=== PATIENT | male | born 1960 | race Caucasian/White ===

== ENCOUNTER 2020-10-11 01:19 | Outpatient (CLI) | payer OTHER, SELFPAY ==
[2020-10-12 00:20] LABS: SARS-CoV-2 RNA PCR Negative
== END 2020-10-11 01:20 | disposition home or self-care (01) ==
LOC: ANHCOVIDDT 01:19
PROVIDERS: PCP Family Medicine; Visit Provider Internal Medicine Gastroenterology
DX: Z01.812 Encounter for preprocedural laboratory examination (principal); Z20.822 Contact with and (suspected) exposure to COVID-19
CPT/HCPCS: C9803; U0003; U0005

== ENCOUNTER 2020-10-14 01:01 | Day surgery (SDC) | payer OTHER, SELFPAY ==
[2020-09-29 14:15] VITALS: BMI 30.7
[2020-10-14 06:16] VITALS: BP 127/84; PULSE 82; RESP 17; TEMP 36.4; O2SAT 98; BMI 28.3
[2020-10-14] MEDS: LACTATED RINGERS 1,000 ML 150 ML IV CONT (06:27)
--- NOTE | 2020-10-14 07:12 | WPDANESEPPF ---
Anes - Initial Pre Proc Eval Procedure: Operation Date: 10/14/20 07:30 Proposed Procedures p Screening Colonoscopy - Edgar Last MD Date/Time: 10/14/20 07:12 Surgeon: Edgar Last MD Pre Op Diagnosis: Neoplasm Screening Patient Data Age: 59 Gender: M Height: 1.68 m Weight: 79.5 kg Last Vital Signs Temp 36.4 C L 10/14/20 06:16 Pulse 82 10/14/20 06:16 Resp 17 10/14/20 06:16 BP 127/84 10/14/20 06:16 Pulse Ox 98 10/14/20 06:16 Allergies Allergy/AdvReac Type Severity Reaction Status Date / Time No Known Allergies Allergy Unknown Verified 10/14/20 06:14 Home Medications Medication Instructions Recorded Confirmed Type No Home Medications 10/14/20 10/14/20 History Patient hx anesthesia problems: none Family hx anesthesia problems: none PMFSH Past Medical History Medical History (Updated 09/15/20 @ 09:09 by Spencer Diana MD) BMI 30.0-30.9,adult Decreased libido Elevated PSA Numbness of right hand Screen for colon cancer Screening for lipid disorders Screening for prostate cancer Tobacco abuse Family History Family History Father Hypertension Mother No problems noted. Social History Social History Smoking packs per day: 1.5 Smoking cigarettes per day: 30.0 Years smoked: 8 Smoking pack-years: 12.00 Smoking status: Former smoker Tobacco type: cigarettes Smoking end date: 09/19/86 Alcohol intake: current Drinks per week: 2 Alcohol use details: beer Living arrangements: with family Gender identity (if verbalized by the patient): Male Spiritual care concerns: No Anes - Eval Final PreProcedure Day of Procedure 10/14/20 07:12 Patient weight: overweight Heart: regular rate and rhythm Lungs: clear to auscultation and normal air movement Airway: Mallampati scale class II Neurological: alert and oriented Last oral intake: >/= 8 hours ASA classification: II Emergent: no Anesthetic plan: proceed Anesthesia type and monitoring: general GIVS Informed Consent: The patient's anesthetic plan and its attendant risks and benefits were discussed with the patient/family/POA. Questions were solicited and answers provided to the satisfaction of the patient/family/POA.
--- NOTE | 2020-10-14 07:36 | PM.HPGS ---
History of Present Illness History of Present Illness Consent: Risks, benefits, and alternatives have been discussed and questions answered. Patient agrees to proceed with procedure. Chief complaint: Neoplasm Screening Narrative: Tato Jain is a 59 year old male here for first screening colonoscopy Review of Systems Constitutional: Constitutional: Denies headache(s) and Denies weakness Eyes: Eyes: Denies blurry vision ENT: Reports Normal hearing present, Denies headache(s) and Denies neck pain Cardiovascular: Cardiovascular: Denies chest pain and Denies dyspnea Respiratory: Respiratory: Denies dyspnea Gastrointestinal: Gastrointestinal: Reports no additional gastrointestinal complaints Genitourinary: Genitourinary: Denies dysuria Musculoskeletal: Musculoskeletal: Denies neck pain Integumentary/Breasts: Skin/Breast: Denies dry skin Neurologic: Reports Normal hearing present, Denies headache(s) and Denies weakness Psychiatric: Psychiatric: Denies anxiety Endocrine: Endocrine: Denies change in body appearance Hematologic/Lymphatic: Hematologic/Lymphatic: Denies easy bleeding Allergic/Immunologic: Allergic/Immunologic: Denies urticaria [facility] Past Medical History Medical History (Updated 09/15/20 @ 09:09 by Spencer Diana MD) BMI 30.0-30.9,adult Decreased libido Elevated PSA Numbness of right hand Screen for colon cancer Screening for lipid disorders Screening for prostate cancer Tobacco abuse Family History Family History Father Hypertension Mother No problems noted. Social History Social History Smoking packs per day: 1.5 Smoking cigarettes per day: 30.0 Years smoked: 8 Smoking pack-years: 12.00 Smoking status: Former smoker Tobacco type: cigarettes Smoking end date: 09/19/86 Alcohol intake: current Drinks per week: 2 Alcohol use details: beer Living arrangements: with family Gender identity (if verbalized by the patient): Male Spiritual care concerns: No Meds Home Medications and Allergies Home Medications Medication Instructions Recorded Confirmed Type No Home Medications 10/14/20 10/14/20 History Allergies Allergy/AdvReac Type Severity Reaction Status Date / Time No Known Allergies Allergy Unknown Verified 10/14/20 06:14 Vital Signs Vital Signs - 24 hr 10/14/20 06:16 Temperature 97.5 F L Pulse Rate 82 Respiratory Rate 17 Blood Pressure 127/84 Pulse Oximetry 98 Exam Const: General: comfortable and no acute distress HENMT: General nose exam: Normal nares present Eyes: General: appearance normal, both eyes and all related structures Neck: Neck: no JVD Resp: Auscultation: clear to auscultation bilaterally Cardio: Rate: regular rate Rhythm: regular rhythm GI: Inspection: non-distended GI Palp: Yes Soft to palpation Skin: General skin exam: normal color Neuro: General: gait normal Speech: normal speech Extrem: General: normal to inspection Psych: Mental Status: mental status grossly normal Assessment and Plan Assessment and plan (1) Screen for colon cancer: Code(s): Z12.11 - Encounter for screening for malignant neoplasm of colon Status: Acute Assessment and Plan: will proceed with colonoscopy
[2020-10-14 08:01] VITALS: BP 84/55; PULSE 86; RESP 16; O2SAT 97
[2020-10-14 08:11] VITALS: BP 90/60; PULSE 79; RESP 19; O2SAT 98
[2020-10-14 08:21] VITALS: BP 97/70; PULSE 71; RESP 19; O2SAT 99
== END 2020-10-14 08:37 | disposition home or self-care (01) ==
PROVIDERS: PCP Family Medicine; Visit Provider Internal Medicine Gastroenterology
PROC: 0DJD8ZZ Inspection of Lower Intestinal Tract, Via Natural or Artificial Opening Endoscopic (ICD-10-PCS; CPT 45378; principal; 2020-10-14 07:30)
DX: Z12.11 Encounter for screening for malignant neoplasm of colon (principal); D12.3 Benign neoplasm of transverse colon; K64.8 Other hemorrhoids; Z87.891 Personal history of nicotine dependence
CPT/HCPCS: 45385; 45381; 88305; C9803; J2704; J7120; U0003; U0005

== ENCOUNTER 2022-02-17 12:21 | Outpatient (CLI) | payer OTHER, SELFPAY ==
--- NOTE | ~2022-02-17 | XR_ITS ---
EXAMINATION: XR lumbar spine 2-3V DATE: 02/17/2022 12:45 INDICATION: Low back pain TECHNIQUE: Anteroposterior and lateral views of the lumbar spine, and cone-down lateral view of the l umbosacral junction were obtained. COMPARISON: 11/04/2017 FINDINGS: There are 3 mm of unchanged retrolisthesis of L4 on L5 and 4 mm of unchanged anterolisthesi s of L5 on S1. There is stable moderate loss of intervertebral disc space height at L5-S1 and mild lo ss of disc space height at L4-5. The vertebral body heights are maintained. There is no fracture. The re appear to be bilateral L5 pars defects. There are surgical clips in the left upper quadrant. A velasquez gical clip is also noted in the left midabdomen. IMPRESSION: 1. Moderate lumbar spondylosis and probable bilateral L5 pars defects without acute findings or signi ficant interval change. Reviewed, dictated and finalized at location F. IMPRESSION: 1. Moderate lumbar spondylosis and probable bilateral L5 pars defects without a cute findings or significant interval change.
--- NOTE | ~2022-02-17 | XR_ITS ---
EXAMINATION: XR thoracic spine 2V DATE: 02/17/2022 12:45 INDICATION: Thoracic back pain TECHNIQUE: AP and lateral views of the thoracic spine were obtained. COMPARISON: None. FINDINGS: There are 10 degrees of lower thoracic levocurvature. Bone alignment is normal. There is no fracture. The vertebral body heights are maintained. There is mild loss of intervertebral disc space height in the midthoracic spine. Small degenerative osteophytes project from the anterior endplates of multiple vertebral bodies. IMPRESSION: 1. Mild thoracic spondylosis without acute findings. Reviewed, dictated and finalized at location F.
--- NOTE | ~2022-02-17 | XR_ITS ---
EXAMINATION:XR_CERV2-3V_CR DATE: 02/17/2022 12:46 INDICATION: Neck pain TECHNIQUE: AP, lateral, and odontoid views of the cervical spine are provided. COMPARISON: None FINDINGS: There are 2 mm of anterolisthesis of C3 on C4. The odontoid is intact. No fracture is ident ified. There is moderate loss of intervertebral disc space height at C6-7 and C7-T1. Small degenerati ve osteophytes project from the anterior endplates of multiple vertebral bodies. There is moderate to severe facet and uncovertebral joint osteoarthritis at multiple levels. Prevertebral soft tissues ar e normal. IMPRESSION: 1. Moderate cervical spondylosis without acute findings. Reviewed, dictated and finalized at location F.
[2022-02-17 13:32] LABS: Hematocrit 48.2 % (42.0-52.0); Mean Corpuscular HGB Conc 33.2 g/dl (32-36); Mean Corpuscular Hemoglobin 28.7 pg (26-34); Mean Corpuscular Volume 86.5 fl (80-100); Mean Platelet Volume 10.3 fl (7.4-10.4); Platelet Count Result 293 k/mm3 (150-375); Red Blood Count 5.57 M/mm3 (4.6-6.20); Red Cell Distribution Width 12.8 % (11.5-14.5); White Blood Count 6.1 K/mm3 (4.5-10.0)
[2022-02-17 13:46] LABS: Alanine Aminotransferase 36 U/L (6-50); Albumin Level 4.5 g/dL (3.5-5.1); Alkaline Phosphatase 53 U/L (38-126); Anion Gap 5 mmol/L (8-16); Aspartate Amino Transferase 34 U/L (17-59); Bilirubin,Total 0.8 mg/dL (0.2-1.3); Blood Urea Nitrogen 20 mg/dL (9-20); Calcium 9.2 mg/dL (8.4-10.2); Carbon Dioxide 30 mmol/L (22-30); Chloride 103 mmol/L (98-107); Cholesterol 194 mg/dL (0-200); Estimated Glomerular Filt Rate 51; Glucose 88 mg/dL (65-110); HDL Direct 48 mg/dL; Potassium 4.4 mmol/L (3.4-5.0); Sodium 138 mmol/L (137-145); Triglycerides 72 mg/dL (<150)
[2022-02-17 13:57] LABS: LDL Cholesterol Direct 109 mg/dL
== END 2022-02-17 12:22 | disposition home or self-care (01) ==
PROVIDERS: PCP Family Medicine; Visit Provider Nurse Practitioner Family
DX: M54.9 Dorsalgia, unspecified (principal); Z72.0 Tobacco use; Z13.220 Encounter for screening for lipoid disorders; R97.20 Elevated prostate specific antigen [PSA]; Z13.29 Encounter for screening for other suspected endocrine disorder; M54.41 Lumbago with sciatica, right side; M47.812 Spondylosis without myelopathy or radiculopathy, cervical region; M47.814 Spondylosis without myelopathy or radiculopathy, thoracic region; M47.816 Spondylosis without myelopathy or radiculopathy, lumbar region
CPT/HCPCS: 36415; 72040; 72070; 72100; 80053; 80061; 84153; 84443; 85027; G0103

== ENCOUNTER 2024-10-18 09:43 | Outpatient (CLI) | payer OTHER, SELFPAY ==
--- OUTSIDE RECORDS SUMMARY | 2024-10-18 10:20 | XMS_ITS | Clinical Summary ---
Author Organization [facility] Address [address] [place] [phone] Phone Care Team Providers Care Revising Clerk Name Role Phone Provider, None Primary Care Provider Unavailabl e Immunizations Immunization Administration Dates Next Due Covid-19, Mrna, Lnp-s, PF, 1 00 mcg/0.5 mL Dose (Moderna) 12/09/2020,10/29/2020 Influenza, Injectable, Mdck, quadrivalent,with Preservative 08/11/2018 TDAP Vaccine 08/11/2018 Social History Tobacco Use Types Packs/Day Years Used Date Smoking Tobacco: Never Assessed Sex and Gender Information Value Date Recorded Sex Assigned at Not on file Legal Sex Male 9:13 AM CDT Gender Identity Not on file Sexual Orientation Not on file Plan of Treatment Health Maintenance Due Date Last Done Comments Hepatitis C Virus (HCV) Screening 1960 Colonoscopy 12/07/2004 Colorectal Cancer Screening 12/07/2004 Cologuard 12/07/2009 Immunochemical Fecal Occult Blood 12/07/2009 Pneumococcal Immunization (5 0+ years) (1 of 1 - PCV) 12/07/2009 Zoster Immunization (1 of 2) 12/07/2009 PSA Discussion 12/07/2014 Influenza Immunization (#1) 2024 08/11/2018 SARS-COV-2 Immunization ( season) 2024 09/01/2021, 12/09/2020, 10/29/2020 Respiratory Syncytial Virus (RSV) Immunization (Adult) (1 - 1-dose 75+ series) 12/07/2034 DTaP/Tdap/Td Immunization Discontinued 08/11/2018 Hepatitis B Immunization Aged Out No longer eligible based on patient's age to complete this topic Meningococcal Immunization (ACWY) Aged Out No longer eligible based on patient's age to complete this topic Pneumococcal Immunization Combined Aged Out No longer eligible based on patient's age to complete this topic Rotavirus Immunization Aged Out No lo nger eligible based on patient's age to complete this topic Care Teams Revising Clerk Relationship Specialty Start Date End Date Provider, None [place] PCP - General 06/06/21
--- OUTSIDE RECORDS SUMMARY | 2024-10-18 10:20 | XMS_ITS | Continuity of Care Document ---
Author Organization [facility] Address [address] [place] [address] [address] [place] [address] Phone Care Team Providers Care Senior Center Director Name Role Phone Robel Niño DO Unavailable Unavailable Advance Directives Directive Yes / No Effective Date File Name No Information Encounters Encounter Description Practice Location Reason(s) For Visit Diagnoses Date Provider Providers Copied on Encounter [facility], [address], [place], [place], [id number], [place] tel:[phone] [facility] No Information Sal[place] Hebert. [address] [facility], [place], [address], [place]. tel: [phone] Family History Family Member Type Diagnosis Age At Onset No Information Payers Payer name Insurance type Covered constitution party ID Authoriza tion(s) [employer] SOI CI [id number] Social History Type Description Quantity Date Captured Comments Sex Male Smoking Status No Information Chief Complaint And Reason For Visit No Information Reason For Referral Reason For Referral No Information History Of Present Illness Encounter Date Complaint History Of Prese nt Illness No Information Functional Status Date Functional Assessmen t No Information Instructions Date Instruction Additional Infor mation No Information Assessments Type Assessment Date No Information Patient Care Teams Name Effective Dates (start - stop) Status Members No Information
[2024-10-18 16:28] LABS: Hematocrit 45.8 % (42.0-52.0); Hemoglobin 14.9 g/dL (14.0-18.0); Mean Corpuscular HGB Conc 32.5 g/dl (32-36); Mean Corpuscular Hemoglobin 28.9 pg (26-34); Mean Corpuscular Volume 88.8 fl (80-100); Mean Platelet Volume 10.8 fl (7.4-10.4); Platelet Count Result 283 k/mm3 (150-375); Red Blood Count 5.16 M/mm3 (4.6-6.20); Red Cell Distribution Width 13.2 % (11.5-14.5); White Blood Count 5.8 K/mm3 (4.5-10.0)
[2024-10-18 16:44] LABS: Alanine Aminotransferase 23 U/L (6-50); Albumin Level 3.9 g/dL (3.5-5.1); Alkaline Phosphatase 61 U/L (38-126); Anion Gap 7 mmol/L (4-12); Aspartate Amino Transferase 36 U/L (17-59); Bilirubin,Total 0.6 mg/dL (0.2-1.3); Blood Urea Nitrogen 22 mg/dL (9-20); Calcium 9.1 mg/dL (8.4-10.2); Carbon Dioxide 30 mmol/L (22-30); Chloride 104 mmol/L (98-107); Cholesterol 196 mg/dL (0-200); Estimated Glomerular Filt Rate 51; Glucose 93 mg/dL (65-110); HDL Direct 38 mg/dL; Potassium 4.4 mmol/L (3.4-5.0); Sodium 141 mmol/L (137-145); Triglycerides 70 mg/dL (<150)
[2024-10-18 16:55] LABS: LDL Cholesterol Direct 136 mg/dL
[2024-10-18 17:18] LABS: Prostate Specific Antigen 13.2 ng/mL (< OR = 4.0)
== END 2024-10-18 09:44 | disposition home or self-care (01) ==
LOC: ANHGOSHLAB 09:45
PROVIDERS: PCP Family Medicine; Visit Provider Family Medicine
DX: N18.31 Chronic kidney disease, stage 3a (principal); R97.20 Elevated prostate specific antigen [PSA]; Z12.5 Encounter for screening for malignant neoplasm of prostate; Z13.220 Encounter for screening for lipoid disorders
CPT/HCPCS: 36415; 80048; 80061; 80076; 84153; 85027; G0103

== ENCOUNTER 2024-10-24 17:11 | Emergency (ER) | payer OTHER, SELFPAY ==
--- OUTSIDE RECORDS SUMMARY | 2024-10-24 17:14 | XMS_ITS | Clinical Summary ---
Author Organization [facility] Address [address] [place] [phone] Phone Care Team Providers Care Industrial Order Clerk Name Role Phone Provider, None Primary [...] age to complete this topic Care Teams Industrial Order Clerk Relationship Specialty Start Date End Date Provider, None [place] PCP - General 06/06/21
--- OUTSIDE RECORDS SUMMARY | 2024-10-24 17:14 | XMS_ITS | Continuity of Care Document ---
Author Organization [facility] Address [address] [place] [address] [address] [place] [address] Phone Care Team Providers Care Community Arts [facility] Manager Name Role Phone Robel Niño DO Unavailable Unavailable Advance Directives Directive Yes / No Effective Date File Name No Information Encounters Encounter Description Practice Location Reason(s) For Visit Diagnoses Date Provider Providers Copied on Encounter [facility], [address], [place], [place], [id number], [place] tel:[phone] [facility] No Information Sal[place] Hebert. [address] [facility], [place], [address], [place]. tel: [phone] Family History Family Member Type Diagnosis Age At Onset No Information Payers Payer name Insurance type Covered democrat ID Authoriza tion(s) [employer] SOI CI [id number] Social History Type Description Quantity Date Captured [...]
--- OUTSIDE RECORDS SUMMARY | 2024-10-24 17:16 | XMS_ITS | Continuity of Care Document ---
Author Organization [facility] Address [address] [place] [address] [address] [place] [address] Phone Care Team Providers Care Washtub Worker Name Role Phone Robel Niño DO Unavailable Unavailable Advance Directives Directive Yes / No Effective Date File Name No Information Encounters Encounter Description Practice Location Reason(s) For Visit Diagnoses Date Provider Providers Copied on Encounter [facility], [address], [place], [place], [id number], [place] tel:[phone] [facility] No Information Sal[place] Hebert. [address] [facility], [place], [address], [place]. tel: [phone] Family History Family Member Type Diagnosis Age At Onset No Information Payers Payer name Insurance type Covered republican ID Authoriza tion(s) [employer] SOI CI [id number] Social History Type Description Quantity Date Captured [...]
[2024-10-24 17:28] VITALS: BP 133/77; PULSE 93; RESP 18; TEMP 37.6; O2SAT 98
--- NOTE | 2024-10-24 18:50 | ED_ITS ---
HPI - URI/Sore Throat General Chief Complaint: Upper Respiratory Infection Stated Complaint: Cough/Headache/Chills Time Seen by Provider: 10/24/24 18:45 Source: patient, RN notes reviewed and old records reviewed Mode of arrival: ambulatory Limitations: no limitations History of Present Illness HPI Narrative: 63 year old male presents to [facility] care with complaints of cough for the past 2-3 weeks with increased symptoms noted with complaints of headache, and chills and body aches, fevers which started last night. Patient reports that he took aspirin for his discomfort. MD elicited complaint: cough and other (chills headache and body aches) Onset (ago): day(s) (since last night chills, fever and body ache, cough for 2-3 weeks) Consistency: progressively worsening Pain scale (0-10): 3 Able to tolerate fluids by mouth: Yes Treatments prior to arrival: aspirin Related Data Allergies Allergy/AdvReac Type Severity Reaction Status Date / Time No Known Allergies Allergy Unknown Verified 10/24/24 18:23 Review of Systems Review of Systems: CONSTITUTIONAL: Reports malaise, chills, sweats, or fever. EYES: Denies visual changes, redness, or discharge. ENT: Reports rhinorrhea, congestion, sinus pain,no otalgia and no sore throat. CARDIOVASCULAR: Denies chest pain, palpitations, or edema. RESPIRATORY: Reports cough.? Denies dyspnea. GASTROINTESTINAL: Denies abdominal pain, nausea, vomiting, diarrhea SKIN: Denies rash or itching. MUSCULOSKELETAL:reports myalgia. NEUROLOGIC:reports headache. 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 Sibling No problems noted. Social History Social History Social History: former smoker -cigarettes- now chews tobacco Smoking packs per day: 1.5 Smoking cigarettes per day: 30.0 Years smoked: 8 Smoking pack-years: 12.00 Smoking status: Current every day smoker Smokeless tobacco user: chewing tobacco Second hand tobacco smoke exposure: No Smoking end date: 09/19/86 Additional smoking assessment comments: former cigarette smoker chews tobacco Alcohol intake: current Drinks per week: 2 Alcohol use details: beer Substance use: never Substance use type: does not use Living arrangements: with family Occupation/Education: retired 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 There is no relevant family history pertinent to the presenting complaint Exam Narrative: GENERAL: Well-appearing, well-nourished, and in no acute distress. HEAD: Normocephalic EYES: PERRLA, conjunctivae clear ENT: Nares clear, turbinates edematous and erythematous, clear discharge. Mucous membranes moist. TM pearly gil with dull light reflex bilaterally; no tragal tenderness. Oropharynx erythematous without lesions. Tonsils not enlarged and without exudate, no drooling, no hoarseness, no trismus, uvula midline.post nasal drainge NECK: Supple. No lymphadenopathy CHEST: Clear to auscultation, breath sounds equal. No wheezing, rhonchi, rales, or stridor. No respiratory distress, speaks in full sentences.frequent cough SAO2 98% on room air HEART: Regular rate and rhythm. No murmur heard. SKIN: Warm, dry, no rash. NEURO: Alert and oriented x3. PSYCH: Normal mood and affect Course Course Emergency Course: Patient is aware of diagnosis, understands and agrees to treatment plan.? Anticipatory guidance given.? Patient agrees to follow-up as directed and is aware of reasons to seek care at the emergency department. Portions of this record may have been created with voice recognition software Level of Care: Express Care Visit Vital Signs Vital signs: Vital Signs Temperature 37.6 C H 10/24/24 17:28 Pulse Rate 93 10/24/24 17:28 Respiratory Rate 18 10/24/24 17:28 Blood Pressure 133/77 10/24/24 17:28 Pulse Oximetry 98 10/24/24 17:28 Oxygen Delivery Room Air 10/24/24 17:28 Temperature 37.6 C H 10/24/24 17:28 Pulse Rate 93 10/24/24 17:28 Respiratory Rate 18 10/24/24 17:28 Blood Pressure 133/77 10/24/24 17:28 Pulse Oximetry 98 10/24/24 17:28 Oxygen Delivery Room Air 10/24/24 17:28 Reviewed MDM - URI/Sore Throat MDM Narrative Medical decision making narrative: Differential diagnosis considered: Cota virus, strep pharyngitis, allergic rhinitis, upper respiratory tract infection, sinusitis, rhinosinusitis, nasopharyngitis. viral pharyngitis, otitis media, otitis externa, pneumonia, bronchitis, viral cough syndrome, viral syndrome, and influenza.? Exam findings show no acute concerns or changes; patient is non-toxic appearing and is in no distress.? Patient is appropriate for outpatient treatment and follow-up. Differential Diagnosis Differential diagnosis: Likely upper respiratory infection, sinusitis, viral infection, influenza and other (COVID, acute cough) Medical Records Attestation: I reviewed the patient's medical records. Lab Data Attestation: I reviewed the patient's lab results. Lab results narrative: Influenza A positive, Influenza B negative, COVID antigen negative Labs: Lab Results 10/24/24 Range/Units 18:52 POC Influenza A Ag Positive (Negative) POC Influenza B Ag Negative (Negative) POC SARS CoV-2 Ag Negative (Negative) reviewed Critical Care Time Critical Care Time Critical Care Time: No Discharge Plan Discharge Clinical Impression: Influenza A Patient Disposition: Home, Self-Care Condition: Stable Instructions: Antibiotic Form Additional Instructions: Increase fluids especially juices and water Decg-xvn-[id number] cough and cold medicine of your choice for your symptoms Tylenol or ibuprofen for any fever pain Cough tablets as directed for cough--do not bite, chew or suck on--swallow whole Steroids as directed--take with food heat to the face 20-30 minutes 4-6 times a day for pain Salt water gargles, throat lozenges or throat sprays as desired Zyrtec or Claritin or Yenifer daily If your symptoms persist, change or worsen significantly before you can contact your personal physician then please, without delay, go to the emergency department for further evaluation. Follow-up with PCP in 7-10 days or sooner if needed Follow up with PCP soon in regards to your blood pressure which is elevated above threshold for referral. Blood pressure above 120/80 may indicate pre- hypertension. 133/77 Patient Language: Tajik Prescriptions: New benzonatate 200 mg capsule 200 mg PO TID PRN (Reason: cough) Qty: 20 0RF Rx Instructions: for cough prednisone 20 mg tablet 20 mg PO BID Qty: 10 0RF Follow-up/Referrals: Spencer Diana MD [Primary Care Provider] - Stand Alone Forms: Work/School Release IP Time of Disposition: 19:04 Quality [place] Coma Scale Eyes: Open Verbal: Oriented and Alert Motor: Follows Commands [place] Coma Total Score: 15
[2024-10-24 18:53] LABS: EDCOVIDSCREEN Negative (Negative); EDINFLUASCREEN Positive (Negative); EDINFLUBSCREEN Negative (Negative)
== END 2024-10-24 19:05 | disposition home or self-care (01) ==
PROVIDERS: Emergency Provider Registered Nurse; PCP Family Medicine
DX: J10.1 Influenza due to other identified influenza virus with other respiratory manifestations (principal); N18.30 Chronic kidney disease, stage 3 unspecified; Z20.822 Contact with and (suspected) exposure to COVID-19; Z87.891 Personal history of nicotine dependence
CPT/HCPCS: 87426; 87804; 99213; G0463

== ENCOUNTER 2024-12-18 00:38 | Day surgery (SDC) | payer MEDICARE, SELFPAY ==
[2024-12-10 10:28] VITALS: BMI 30.4
--- OUTSIDE RECORDS SUMMARY | 2024-12-18 00:41 | XMS_ITS | Clinical Summary ---
Author Organization [facility] Address [address] [place] [phone] Phone Care Team Providers Care Database Report Writer Name Role Phone Provider, None Primary Care [...] 12/07/2009 Zoster Immunization (1 of 2) 12/07/2009 Influenza Immunization (#1) 2024 08/11/2018 SARS-COV-2 Immunization [...] age to complete this topic Care Teams Database Report Writer Relationship Specialty Start Date End Date Provider, None [place] PCP - General 06/06/21
--- OUTSIDE RECORDS SUMMARY | 2024-12-18 00:41 | XMS_ITS | Continuity of Care Document ---
Author Organization [facility] Address [address] [place] [address] [address] [place] [address] Phone Care Team Providers Care Tilting Saw Operator Name Role Phone Robel Niño DO Unavailable Unavailable Advance Directives Directive Yes / No Effective Date File Name No Information Encounters Encounter Description Practice Location Reason(s) For Visit Diagnoses Date Provider Providers Copied on Encounter [facility], [address], [place], [place], [id number], [place] tel:[phone] [facility] No Information Sal[place] Hebert. [address] [facility], [place], [address], [place]. tel: [phone] Family History Family Member Type Diagnosis Age At Onset No Information Payers Payer name Insurance type Covered green party ID Authoriza tion(s) [employer] SOI CI [id number] Social History Type Description Quantity Date Captured [...]
[2024-12-18 10:13] VITALS: BP 109/81; PULSE 81; RESP 20; TEMP 36.7; O2SAT 98; BMI 30.6
--- NOTE | 2024-12-18 10:15 | P.PNAN_ITS ---
Anes - Initial Pre Proc Eval Procedure: Operation Date: 12/18/24 11:30 Proposed Procedures p Screening Colonoscopy - Edgar Last MD Date/Time: 12/18/24 10:15 Surgeon: Edgar Last MD Pre Op Diagnosis: Screening Patient Data Age: 64 Gender: M Height: 1.65 m Weight: 83 kg Allergies Allergy/AdvReac Type Severity Reaction Status Date / Time No Known Allergies Allergy Unknown Verified 12/18/24 10:12 Home Medications ?Medication ?Instructions ?Recorded ?Confirmed ?Type No Home Medications 12/10/24 12/10/24 History Patient hx anesthesia problems: none Family hx anesthesia problems: none Results Review: All pre-operative results and documents have been reviewed as part of the pre- operative evaluation. 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 Sibling No problems noted. Social History Social History Social History: former smoker -cigarettes- now chews tobacco Smoking packs per day: 2 Smoking cigarettes per day: 40.0 Years smoked: 8 Smoking pack-years: 16.00 Smoking status: Current every day smoker Smokeless tobacco user: chewing tobacco Second hand tobacco smoke exposure: No Smoking end date: 09/19/86 Additional smoking assessment comments: former cigarette smoker chews tobacco Alcohol intake: current Drinks per week: 2 Alcohol use details: beer Substance use: never Substance use type: does not use Living arrangements: with family Occupation/Education: retired 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 CKD 3, prev kid donor, ex smoker, quit approx 1999. Informed Consent: The patient's anesthetic plan and its attendant risks and benefits were discussed with the patient/family/POA. Questions were solicited and answers provided to the satisfaction of the patient/family/POA.
[2024-12-18] MEDS: LACTATED RINGERS 1,000 ML 150 ML IV CONT (10:18)
--- NOTE | 2024-12-18 10:46 | P.HP_ITS ---
History of Present Illness History of Present Illness Consent: Risks, benefits, and alternatives have been discussed and questions answered. Patient agrees to proceed with procedure. 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 Sibling No problems noted. Social History Social History Social History: former smoker -cigarettes- now chews tobacco Smoking packs per day: 2 Smoking cigarettes per day: 40.0 Years smoked: 8 Smoking pack-years: 16.00 Smoking status: Current every day smoker Smokeless tobacco user: chewing tobacco Second hand tobacco smoke exposure: No Smoking end date: 09/19/86 Additional smoking assessment comments: former cigarette smoker chews tobacco Alcohol intake: current Drinks per week: 2 Alcohol use details: beer Substance use: never Substance use type: does not use Living arrangements: with family Occupation/Education: retired Additional occupation/education comments: [employer]/[place] [employer] Gender identity (if verbalized by the patient): Male Spiritual care concerns: No Meds Home Medications and Allergies Home Medications ?Medication ?Instructions ?Recorded ?Confirmed ?Type No Home Medications 12/10/24 12/10/24 History Allergies Allergy/AdvReac Type Severity Reaction Status Date / Time No Known Allergies Allergy Unknown Verified 12/18/24 10:12 Vital Signs Vital Signs - 24 hr 12/18/24 10:13 Temperature 98.1 F Pulse Rate 81 Respiratory Rate 20 Blood Pressure 109/81 Pulse Oximetry 98 Oxygen Delivery Room Air Exam Const: General: comfortable and no acute distress HENMT: Face/Nose/Sinus: Normal nares present Eyes: General: appearance normal, both eyes and all related structures Neck: Neck: no JVD Resp: Auscultation: clear to auscultation bilaterally Cardio: Rate: regular rate Rhythm: regular rhythm GI: Inspection: non-distended GI Palp: Yes Soft to palpation Skin: General skin exam: normal color Neuro: General: gait normal Speech: normal speech Extrem: General: normal to inspection Psych: Mental Status: mental status grossly normal Assessment and Plan Assessment and plan (1) Colon polyp: Qualifiers: Colon polyp type: adenomatous Colon location: transverse Qualified Code(s): D12.3 - Benign neoplasm of transverse colon Code(s): K63.5 - Polyp of colon Status: Acute Assessment and Plan: colonoscopy
[2024-12-18 11:03] VITALS: BP 77/42; PULSE 76; RESP 16; O2SAT 96
[2024-12-18 11:13] VITALS: BP 76/46; PULSE 73; RESP 19; O2SAT 99
[2024-12-18 11:23] VITALS: BP 104/74; PULSE 67; RESP 21; O2SAT 100
== END 2024-12-18 11:35 | disposition home or self-care (01) ==
PROVIDERS: PCP Family Medicine; Referring Provider Family Medicine; Visit Provider Internal Medicine Gastroenterology
PROC: 0DJD8ZZ Inspection of Lower Intestinal Tract, Via Natural or Artificial Opening Endoscopic (ICD-10-PCS; CPT 45378; principal; 2024-12-18 11:30)
DX: Z12.11 Encounter for screening for malignant neoplasm of colon (principal); D12.3 Benign neoplasm of transverse colon; K64.8 Other hemorrhoids; N18.30 Chronic kidney disease, stage 3 unspecified; F17.220 Nicotine dependence, chewing tobacco, uncomplicated; E66.9 Obesity, unspecified; Z68.30 Body mass index [BMI] 30.0-30.9, adult
CPT/HCPCS: 45385; 88305; J2003; J2704; J7120